=== PATIENT | male | born 1955 | race Caucasian/White ===

== ENCOUNTER 2018-03-19 14:22 | Emergency (ER) | payer OTHER ==
[~2018-03-19] VITALS: Ht 172.7 cm; Wt 109.3 kg
[2018-03-19 14:30] VITALS: Ht 172.7 cm; Wt 109.3 kg
[2018-03-19 16:14] VITALS: BP 119/72
== END 2018-03-19 16:14 | disposition home or self-care (01) ==
LOC: ED 14:22
DX: M54.5 Low back pain (principal); E78.00 Pure hypercholesterolemia, unspecified; Z95.0 Presence of cardiac pacemaker
CPT/HCPCS: J1885